=== PATIENT | male | born 1990 | race Caucasian/White ===

== ENCOUNTER 2016-10-18 21:12 | Emergency (ER) | payer OTHER ==
[~2016-10-18] VITALS: Ht 177.8 cm; Wt 72.0 kg
[~2016-10-18 21:12] MED LIST: AMOX TR-K CLV1 EAC4 PO; INDOCIN50 MG PO; NICOTINE PATCH1 EAC2 TD
[2016-10-18 22:09] LABS: HEMATOCRIT 46.6 % (38.0-50.0); MCH 30.1 PG (29.0-34.0); MCHC 34.3 G/DL (30.0-36.0); MCV 87.6 FL (86-99); MEAN PLAT.VOLUME 9.6 uM^3 (9.0-12.4); PLATELET COUNT 317 K/uL (156-360); RBC DIS.WIDTH-CV 12.7 % (11.8-14.6); RBC DIS.WIDTH-SD 41.1 % (39-53); RED BLOOD COUNT 5.32 M/uL (4.00-5.50)
[2016-10-18 22:17] LABS: CHLORIDE 105 mEq/L (99-109); POTASSIUM 4.5 mEq/L (3.7-5.4); SODIUM 136 mEq/L (136-147)
[2016-10-18 22:18] LABS: GLUCOSE 82 mg/dL (70-99)
[2016-10-18 22:20] LABS: ANION GAP 11 MEQ/L (2-14)
[2016-10-18] MEDS ORDERED: TRAZODONE HCL50 MG PO (22:20)
[2016-10-18] MEDS ORDERED: CLONIDINE HCL0.1 MG PO (22:20)
[2016-10-18 22:22] LABS: GFR ESTIMATE (CALCULATED) > 59 mL/min/; SERUM ETHYL ALCOHOL 100 mg/dL
[2016-10-18 22:23] LABS: UREA NITROGEN (BUN) 9 mg/dL (9-23)
[2016-10-18 23:19] VITALS: BP 99/47
== END 2016-10-18 23:22 | disposition home or self-care (01) ==
LOC: EME 21:12
DX: F11.23 Opioid dependence with withdrawal (principal); F17.200 Nicotine dependence, unspecified, uncomplicated
CPT/HCPCS: 80048; 85027; 99281; 99285; G0480